=== PATIENT | female | born 1940 | race Hispanic/Latino ===

== ENCOUNTER → 2021-01-06 | Outpatient (CLI) | payer OTHER, MEDICARE ==
[~2021-01-06] MED LIST: AEC81 PO; AMLO-258 PO; CALCIUM PO; GLIP10TA9 PO; LISI2.5T2 PO; MIGL25TA PO; MVIT PO; PRAV40TA3 PO; SITA1TAB6 PO; [UNRECOGNIZED DRUG - OTHER] PO
== END | disposition home or self-care (01) ==
LOC: RAH 14:42
PROVIDERS: ATTEND Internal Medicine
DX: R63.4 Abnormal weight loss (principal); E46 Unspecified protein-calorie malnutrition
CPT/HCPCS: 71046

== ENCOUNTER → 2021-01-25 | Outpatient (CLI) | payer OTHER, MEDICARE ==
[2021-01-25 16:40] LABS: BASOPHILS % (AUTO) 0.8 % (0.0-5.0); EOSINOPHILS % (AUTO) 2.8 % (0.0-8.0); HEMATOCRIT 31.8 % (36-48); LYMPHOCYTES % (AUTO) 16.9 % (21.0-51.0); MEAN CORPUSCULAR HEMOGLOBIN 32.4 pg (27.0-33.0); MEAN CORPUSCULAR HGB CONC 31.8 g/dL (32.0-36.0); MEAN CORPUSCULAR VOLUME 101.9 fL (79-99); MONOCYTES % (AUTO) 12.2 % (3.0-13.0); NEUTROPHILS % (AUTO) 66.8 % (40.0-77.0); PLATELET COUNT (AUTO) 618 K/uL (130-400); RED BLOOD CELL COUNT(AUTO) 3.12 MIL/uL (4.00-5.50); RED CELL DISTRIBUTION WIDTH 15.4 % (11.0-15.5); WHITE BLOOD COUNT (AUTO) 6.1 K/uL (4.8-10.8)
[2021-01-25 16:52] LABS: INR 1.07 (0.85-1.15); PROTHROMBIN TIME 11.6 SEC (9.6-11.6)
[2021-01-25 16:53] LABS: PARTIAL THROMBOPLASTIN TIME 30.7 SEC (26.3-35.5)
[2021-01-25 16:56] LABS: ALBUMIN 2.9 g/dL (3.5-5.0); BILIRUBIN,TOTAL 0.1 mg/dL (0.2-1.0); CREATININE 1.1 mg/dL (0.5-1.5); POTASSIUM 4.3 mmol/L (3.5-5.1); TOTAL PROTEIN, SERUM 8.1 g/dL (6.0-8.3)
== END | disposition home or self-care (01) ==
LOC: RAH 16:03
PROVIDERS: ATTEND Internal Medicine
DX: Z01.818 Encounter for other preprocedural examination (principal)
CPT/HCPCS: 36415; 71046; 80053; 85025; 85610; 85730

== ENCOUNTER → 2023-11-04 | Outpatient (CLI) | payer OTHER, MEDICARE ==
[~2023-11-04] MED LIST changes: +LISI2.5T13 PO; -LISI2.5T2 PO
== END | disposition home or self-care (01) ==
LOC: RAH 14:24
PROVIDERS: ATTEND Internal Medicine
DX: I65.23 Occlusion and stenosis of bilateral carotid arteries (principal); R09.89 Other specified symptoms and signs involving the circulatory and respiratory systems
CPT/HCPCS: 93880

== ENCOUNTER → 2025-07-09 | Outpatient (CLI) | payer OTHER, MEDICAID ==
[~2025-07-09] MED LIST changes: +BRIM5DRO5 OP; +FERS325 PO; +GLIP10TA16 PO; -GLIP10TA9 PO; +HONE44PA TP; +MUPI22OI2 TP; -PRAV40TA3 PO; +PRAV40TA62 PO; +[UNRECOGNIZED DRUG - CODE] PO
--- NOTE | 2025-07-10 06:47 | HMCIMG ---
EXAMINATION: SOFT TISSUE ULTRASOUND OF THE BILATERAL GLUTEAL REGION. CLINICAL HISTORY: Palpable swelling. COMPARISON: None. TECHNIQUE: Transverse and longitudinal images were obtained in the bilateral gluteal regions. FINDINGS: There are irregular calcified areas that measure 4.0 x 4.2 cm in the right gluteal region and 4.3 x 2.1 cm in the left gluteal region. IMPRESSION: Calcified irregular areas in the bilateral gluteal regions, of concern for calcified granulomas. /[place]
== END | disposition home or self-care (01) ==
LOC: RAH 10:08
PROVIDERS: ATTEND Internal Medicine
DX: L72.8 Other follicular cysts of the skin and subcutaneous tissue (principal)
CPT/HCPCS: 76705